=== PATIENT | female | born 1935 | race Hispanic/Latino ===

== ENCOUNTER 2018-06-17 09:14 | Emergency (ER) | payer OTHER ==
[~2018-06-17] VITALS: Ht 160 cm; Wt 50.8 kg
[~2018-06-17 09:14] MED LIST: ASPIRIN325 MG PO; BRIMONIDINE TART5 ML OP; CLONIDINE HCL0.2 MG PO; LATANOPROST2.5 ML OP; LEVOTHYROXINE50 MCG PO; LIPITOR20 MG PO; LISINOPRIL-HCT1 EAC2 PO; METOPROLOL TART25 MG PO; NITROSTAT0.4 MG SL; PLAVIX75 MG PO; TIMOLOL MALEATE10 M1 OP
[2018-06-17] MEDS ORDERED: FAMOTIDINE 20 MG TAB PO ONE (10:45)
[2018-06-17 11:15] VITALS: BP 171/94
[2018-06-17] MEDS ORDERED: DIPHENHYDRAMINE HCL 25 MG CAP PO ONE (11:30)
[2018-06-17] MEDS ORDERED: DEXAMETHASONE SOD PHOS 10 MG/1 ML VIAL INJ ONE (11:30)
== END 2018-06-17 11:14 | disposition home or self-care (01) ==
LOC: ER 09:14
DX: L50.0 Allergic urticaria (principal)
CPT/HCPCS: 99282; J1100

== ENCOUNTER → 2020-12-10 | Outpatient (CLI) | payer OTHER ==
[~2020-12-10] MED LIST changes: +COVID-19 VACC, MRNA(MODERNA)/PF 100 MCG/0.5 ML VIAL IM ONE
== END ==
LOC: VACCPMC 14:24
DX: Z23 Encounter for immunization (principal); Z20.822 Contact with and (suspected) exposure to COVID-19
CPT/HCPCS: 91301

== ENCOUNTER → 2021-01-03 | Outpatient (CLI) | payer OTHER | END | disposition home or self-care (01) | LOC: VACCPMC 09:43 | DX: Z23 Encounter for immunization (principal); Z20.822 Contact with and (suspected) exposure to COVID-19 | CPT/HCPCS: 91301 ==

== ENCOUNTER 2022-12-21 11:54 | Inpatient (IN) | payer MEDICARE, OTHER ==
[~2022-12-21] VITALS: Ht 160 cm; Wt 51.7 kg
[~2022-12-21 11:54] MED LIST changes: -COVID-19 VACC, MRNA(MODERNA)/PF 100 MCG/0.5 ML VIAL IM ONE
[2022-12-21] MEDS ORDERED: HYDRALAZINE HCL 20 MG/ML VIAL IV STA (12:28)
[2022-12-21 13:07] LABS: BASOPHILS # (AUTO) 0.1 (0.0-0.1); BASOPHILS % 0.7 % (0.0-1.0); EOSINOPHILS # (AUTO) 0.1 (0.0-0.4); EOSINOPHILS % 1.7 % (0.0-6.0); HEMATOCRIT 43.5 % (34.2-44.1); HEMOGLOBIN 14.7 g/dL (12.0-16.0); LYMPHOCYTES # (AUTO) 1.2 (1.0-3.2); LYMPHOCYTES % 15.7 % (18.0-39.1); MEAN CORPUSCULAR HEMOGLOBIN 31.8 pg (28-32); MEAN CORPUSCULAR HGB CONC 33.8 g/dL (31-35); MEAN CORPUSCULAR VOLUME 94.2 fL (81-99); MONOCYTES # (AUTO) 0.6 (0.2-0.8); MONOCYTES % 7.2 % (4.4-11.3); NEUTROPHILS # (AUTO) 5.6 (2.1-6.9); PLATELET COUNT 222 x10e3/uL (140-360); RED BLOOD COUNT 4.62 x10e6/uL (3.6-5.1); RED CELL DISTRIBUTION WIDTH 13.1 % (11.7-14.4)
[2022-12-21 13:35] LABS: ALBUMIN 4.6 g/dL (3.5-5.0); ALBUMIN/GLOBULIN RATIO 1.3 (0.8-2.0); ANION GAP 15.1 mmol/L (8-16); CREATININE, SERUM 0.75 mg/dL (0.57-1.11); POTASSIUM 4.1 mmol/L (3.5-5.1)
[2022-12-21 13:37] LABS: PARTIAL THROMBOPLASTIN TIME 29.5 seconds (23.8-35.5)
[2022-12-21 13:43] LABS: INR 0.96
[2022-12-21] MEDS ORDERED: IOPAMIDOL 370 MG/ML 100 ML INFUS..BTL INJ ONE (14:07)
[2022-12-21] MEDS ORDERED: SODIUM CHLORIDE 0.9% 100 ML ONE (14:09)
[2022-12-21] MEDS ORDERED: ONDANSETRON HCL INJ 2MG/ML 2ML 2 MG/ML VIAL IV STA (14:16)
[2022-12-21] MEDS ORDERED: Morphine 4mg INJECTION 4 MG/ML INJ IV ONE (14:30)
[2022-12-21] MEDS ORDERED: ASPIRIN 81 MG CHEW TAB PO ONE (15:30)
[2022-12-21] MEDS ORDERED: SODIUM CHLORIDE 0.9% 1000ML 1,000 ML IV SCH (15:30)
[2022-12-21] MEDS ORDERED: ONDANSETRON HCL INJ 2MG/ML 2ML 2 MG/ML VIAL IV PRN (15:30)
[2022-12-21 16:18] LABS: CLARITY,URINE CLEAR (CLEAR); COLOR,URINE YELLOW (YELLOW)
[2022-12-21 16:19] LABS: KETONES,URINE NEGATIVE (NEGATIVE); LEUKOCYTE ESTERASE ,URINE NEGATIVE (NEGATIVE); NITRITE,URINE NEGATIVE (NEGATIVE); PROTEIN,URINE DIPSTICK NEGATIVE (NEGATIVE); URINE UROBILINOGEN 0.2 mg/dL (0.2 - 1)
[2022-12-21 16:29] LABS: EPITHELIAL CELLS,URINE RARE /LPF; RBC,URINE 0-5 /HPF (0-5); WBC,URINE (MAN) 0-5 /HPF (0-5)
[2022-12-21 18:15] LABS: CREATINE KINASE MB 4.1 ng/mL (0-5.0)
[2022-12-21] MEDS ORDERED: ACETAMINOPHEN 325 MG TAB PO PRN (20:45)
[2022-12-21] MEDS: ATORVASTATIN 20 MG TAB PO SCH (21:00)
[2022-12-22 00:04] LABS: CREATINE KINASE MB 10.1 ng/mL (0-5.0)
[2022-12-22] MEDS: Morphine 2mg Syringe 2 MG/ML SYR IV PRN ×2 (03:53→17:02)
[2022-12-22] MEDS: ASPIRIN 325 MG TAB PO SCH (03:57)
[2022-12-22 05:38] LABS: BASOPHILS % 0.6 % (0.0-1.0); EOSINOPHILS # (AUTO) 0.2 (0.0-0.4); EOSINOPHILS % 2.3 % (0.0-6.0); HEMATOCRIT 41.9 % (34.2-44.1); HEMOGLOBIN 14.1 g/dL (12.0-16.0); LYMPHOCYTES # (AUTO) 1.3 (1.0-3.2); LYMPHOCYTES % 18.9 % (18.0-39.1); MEAN CORPUSCULAR HEMOGLOBIN 31.6 pg (28-32); MEAN CORPUSCULAR HGB CONC 33.7 g/dL (31-35); MEAN CORPUSCULAR VOLUME 93.9 fL (81-99); MONOCYTES # (AUTO) 0.7 (0.2-0.8); MONOCYTES % 10.5 % (4.4-11.3); NEUTROPHILS # (AUTO) 4.6 (2.1-6.9); NEUTROPHILS % 67.3 % (38.7-80.0); PLATELET COUNT 184 x10e3/uL (140-360); RED BLOOD COUNT 4.46 x10e6/uL (3.6-5.1); RED CELL DISTRIBUTION WIDTH 13.2 % (11.7-14.4)
[2022-12-22 06:09] LABS: ANION GAP 15.1 mmol/L (8-16); CALCIUM 8.9 mg/dL (8.4-10.2); CREATININE, SERUM 0.7 mg/dL (0.57-1.11); POTASSIUM 4.1 mmol/L (3.5-5.1)
[2022-12-22] MEDS: LEVOTHYROXINE SODIUM 50 MCG TAB PO SCH (07:52)
[2022-12-22] MEDS ORDERED: ROCKLATAN 0.022.5 ML OU (08:00)
[2022-12-22] MEDS ORDERED: COMBIGAN EYE DRO5 ML OP (08:04)
[2022-12-22] MEDS ORDERED: LATANOPROST(OPTH) 2.5 ML BTL OP SCH (09:00)
[2022-12-22] MEDS ORDERED: TIMOLOL MALEATE 0.5% OPTH DRP 5 ML BTL OP SCH (09:00)
[2022-12-22] MEDS ORDERED: BRIMONIDINE TARTRATE (OPTH) 5 ML LIQD OP SCH (09:00)
[2022-12-22] MEDS: CLOPIDOGREL BISULFATE 75 MG TAB PO SCH (09:53)
[2022-12-22] MEDS: METOPROLOL TARTRATE 25 MG TAB PO SCH ×2 (09:54→17:01)
[2022-12-22 12:42] VITALS: BP 135/68
[2022-12-22 16:52] VITALS: BP 154/68
[2022-12-22] MEDS: NITROGLYCERIN 0.4 MG SUBL SL PRN (18:57)
[2022-12-22] MEDS ORDERED: HYDRALAZINE HCL 20 MG/ML VIAL IV PRN (19:45)
[2022-12-22 20:00] VITALS: BP 148/73
[2022-12-22] MEDS ORDERED: LISINOPRIL 10 MG TAB PO ONE (20:10)
[2022-12-22] MEDS: ATORVASTATIN 20 MG TAB PO SCH (20:45)
[2022-12-23] VITALS (20 sets, daily range): BP systolic 122–175; BP diastolic 60–87
[2022-12-23] MEDS: NITROGLYCERIN 0.4 MG SUBL SL PRN (04:09)
[2022-12-23] MEDS: LISINOPRIL 10 MG TAB PO SCH ×2 (05:13→16:29)
[2022-12-23] MEDS: LEVOTHYROXINE SODIUM 50 MCG TAB PO SCH (07:30)
[2022-12-23] MEDS ORDERED: HEPARIN SOD (PORCINE) 1000 UNIT/ML 30ML ONE (08:51)
[2022-12-23] MEDS ORDERED: IOPAMIDOL 370 MG/ML 100 ML INFUS..BTL INJ ONE ×2 (08:51→09:48)
[2022-12-23] MEDS ORDERED: LIDOCAINE HCL 2% LOCAL 20 ML VIAL ONE (08:51)
[2022-12-23] MEDS ORDERED: HEPARIN SOD/SOD CHLORIDE 2,000 ML ONE (08:51)
[2022-12-23] MEDS ORDERED: NITROGLYCERIN/D5W 200 MCG/ML 250 ML ONE (08:51)
[2022-12-23] MEDS ORDERED: SODIUM CHLORIDE 0.9% 1000ML 1,000 ML ONE (08:51)
[2022-12-23] MEDS ORDERED: VERAPAMIL HCL 2.5 MG/ML 2 ML VIAL ONE (08:52)
[2022-12-23] MEDS ORDERED: MIDAZOLAM HCL 2 MG/2 ML VIAL ONE ×2 (08:52→09:45)
[2022-12-23] MEDS ORDERED: FENTANYL CITRATE/PF 100MCG/2 ML INJ ONE (08:53)
[2022-12-23] MEDS: COMBIGAN EYE DROPS OP SCH (09:00)
[2022-12-23] MEDS: CLOPIDOGREL BISULFATE 75 MG TAB PO SCH (09:00)
[2022-12-23] MEDS: METOPROLOL TARTRATE 25 MG TAB PO SCH ×2 (09:00→16:30)
[2022-12-23] MEDS: ASPIRIN 325 MG TAB PO SCH (09:00)
[2022-12-23] MEDS ORDERED: ASPIRIN 325 MG TAB ONE (10:07)
[2022-12-23] MEDS ORDERED: CLOPIDOGREL BISULFATE 75 MG TAB ONE (10:07)
[2022-12-23] MEDS: ATORVASTATIN 40 MG TAB PO SCH (21:04)
[2022-12-24] VITALS (8 sets, daily range): BP systolic 132–160; BP diastolic 56–78
[2022-12-24] MEDS: LISINOPRIL 10 MG TAB PO SCH ×2 (05:32→16:33)
[2022-12-24 07:35] LABS: BASOPHILS # (AUTO) 0.1 (0.0-0.1); EOSINOPHILS # (AUTO) 0.1 (0.0-0.4); EOSINOPHILS % 1.5 % (0.0-6.0); HEMOGLOBIN 14.2 g/dL (12.0-16.0); LYMPHOCYTES # (AUTO) 1.4 (1.0-3.2); LYMPHOCYTES % 19.3 % (18.0-39.1); MEAN CORPUSCULAR HEMOGLOBIN 31.6 pg (28-32); MEAN CORPUSCULAR HGB CONC 33.8 g/dL (31-35); MEAN CORPUSCULAR VOLUME 93.3 fL (81-99); MONOCYTES # (AUTO) 0.7 (0.2-0.8); MONOCYTES % 9.9 % (4.4-11.3); NEUTROPHILS % 67.9 % (38.7-80.0); PLATELET COUNT 202 x10e3/uL (140-360); RED CELL DISTRIBUTION WIDTH 13.2 % (11.7-14.4)
[2022-12-24 07:57] LABS: CALCIUM 9.2 mg/dL (8.4-10.2); CREATININE, SERUM 0.7 mg/dL (0.57-1.11)
[2022-12-24] MEDS ORDERED: CLOPIDOGREL BISULFATE 75 MG TAB PO SCH (09:00)
[2022-12-24] MEDS: COMBIGAN EYE DROPS OP SCH (09:00)
[2022-12-24] MEDS: ASPIRIN 325 MG TAB PO SCH (09:28)
[2022-12-24] MEDS: LEVOTHYROXINE SODIUM 50 MCG TAB PO SCH (09:29)
[2022-12-24] MEDS: METOPROLOL TARTRATE 25 MG TAB PO SCH ×2 (09:29→16:34)
[2022-12-24] MEDS: CLOPIDOGREL BISULFATE 75 MG TAB PO SCH (09:29)
[2022-12-24] MEDS: ATORVASTATIN 40 MG TAB PO SCH (20:14)
[2022-12-25] VITALS: BP 151/63
[2022-12-25] MEDS: LISINOPRIL 10 MG TAB PO SCH (04:43)
[2022-12-25 04:48] VITALS: BP 145/61
[2022-12-25 07:29] VITALS: BP 158/63
[2022-12-25 07:54] VITALS: BP 158/63
[2022-12-25] MEDS: LEVOTHYROXINE SODIUM 50 MCG TAB PO SCH (08:36)
[2022-12-25] MEDS: CLOPIDOGREL BISULFATE 75 MG TAB PO SCH (08:36)
[2022-12-25] MEDS: COMBIGAN EYE DROPS OP SCH (08:37)
[2022-12-25] MEDS: METOPROLOL TARTRATE 25 MG TAB PO SCH (08:37)
[2022-12-25] MEDS ORDERED: ASPIRIN 325 MG TAB PO SCH (09:00)
== END 2022-12-25 11:00 | disposition home or self-care (01) | DRG 249 ==
LOC: ER 12:22 → ERHOLD 15:20 → MED/SURG2 12-22 12:37 → OBSVTOIN 12-22 14:56
PROVIDERS: ADMIT Internal Medicine; ATTEND Internal Medicine
PROC: 02H03DZ Insertion of Intraluminal Device into Coronary Artery, One Artery, Percutaneous Approach (ICD-10-PCS; principal; 2022-12-23)
PROC: 4A023N7 Measurement of Cardiac Sampling and Pressure, Left Heart, Percutaneous Approach (ICD-10-PCS; 2022-12-23)
PROC: B2111ZZ Fluoroscopy of Multiple Coronary Arteries using Low Osmolar Contrast (ICD-10-PCS; 2022-12-23)
DX: I21.4 Non-ST elevation (NSTEMI) myocardial infarction (principal); I25.119 Atherosclerotic heart disease of native coronary artery with unspecified angina pectoris; I10 Essential (primary) hypertension; E03.9 Hypothyroidism, unspecified; E78.5 Hyperlipidemia, unspecified; Z98.61 Coronary angioplasty status; Z20.822 Contact with and (suspected) exposure to COVID-19; Z90.49 Acquired absence of other specified parts of digestive tract; Z60.2 Problems related to living alone
CPT/HCPCS: 36415; 71045; 71275; 80048; 80053; 81001; 82550; 82553; 83880; 84484; 85025; 85610; 85730; 92920; 92928; 93005; 93306; 93454; 94760; 94799; 99152; 99153; 99284; C1760; C1769; C1894; G0378; J0360; J1644; J2001; J2250; J2270; J2405; J3010; J7030; J7050; Q9967